=== PATIENT | male | born 1985 ===

== ENCOUNTER 2016-12-07 12:58 | Emergency (ER) | payer OTHER ==
[2016-12-07 13:11] VITALS: BMI 22.8
--- NOTE | 2016-12-07 13:51 | ED PDOC ---
Arrival/HPI - General Chief Complaint: Trauma Time Seen by Provider: 12/07/16 13:29 Historian: Patient - History of Present Illness Narrative History of Present Illness (Text): 12/07/16 14:41 31 y/o male, no pmh, nkda, last tetanus under 5 years ago, c/o laceration to the rt. 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 Pt. has no numbness or tinlging, no difficulty moving the rt. lower extremities, no numbness or tingling, no dizziness, no other medical or psychological complaints. Past Medical History - Provider Review Nursing Documentation Reviewed: Yes - Psychiatric Hx Substance Use: No - Anesthesia Hx Anesthesia: No Family/Social History - Physician Review Nursing Documentation Reviewed: Yes Family/Social History: Unknown Family HX Smoking Status: Light Smoker < 10 Cigarettes Daily Hx Alcohol Use: No Hx Substance Use: No Allergies/Home Meds Allergies/Adverse Reactions: Allergies No Known Allergies Allergy (Verified 12/07/16 13:55) Review of Systems - Physician Review All systems were reviewed & negative as marked: Yes - Review of Systems Constitutional: absent: Fatigue, Fevers Eyes: absent: Vision Changes ENT: absent: Hearing Changes Respiratory: absent: Cough Cardiovascular: absent: Chest Pain Gastrointestinal: absent: Abdominal Pain, Nausea, Vomiting Musculoskeletal: absent: Arthralgias, Back Pain Skin: Laceration. absent: Rash, Pruritis, Skin Lesions, Abscess, Ulcer, Cellulitis Neurological: absent: Headache, Dizziness, Focal Weakness, Gait Changes, Speech Changes, Facial Droop, Disequilibrium, Seizure Physical Exam - Systems Exam Head: Present: Atraumatic, Normocephalic Pupils: Present: PERRL Extroacular Muscles: Present: EOMI Conjunctiva: Present: Normal Mouth: Present: Moist Mucous Membranes Neck: Present: Normal Range of Motion Respiratory/Chest: Present: Clear to Auscultation, Good Air Exchange. No: Respiratory Distress, Accessory Muscle Use Cardiovascular: Present: Regular Rate and Rhythm, Normal S1, S2. No: Murmurs Abdomen: Present: Normal Bowel Sounds. No: Tenderness, Distention, Peritoneal Signs Back: Present: Normal Inspection Upper Extremity: Present: Normal Inspection. No: Cyanosis, Edema Lower Extremity: Present: Normal Inspection, Other (Rt. tibia/fibula: visible approx. 2cm superficial to intermediate depth laceration with skin eroded off, no visible foreign bodies, FROM without limitation, sensation intact, motor 5/5 , +DPPT pulses, capillary refill< 2 seconds, neurovascular intact. ). No: Edema Neurological: Present: GCS=15, CN II-XII Intact, Speech Normal Skin: Present: Warm, Dry, Normal Color. No: Rashes Psychiatric: Present: Alert, Oriented x 3, Normal Insight, Normal Concentration Medical Decision Making ED Course and Treatment: 12/07/16 13:59 -keflex, motrin -xray 12/07/16 14:45 -xray show no fracture/dislocation or foreign bodies. -wound irrigate with 1000cc of normal saline, clean with betadine, 1% lidocaine with 1cc for local anesthetic, 4-0 vicryl made 4 subq stiches, 4-0 nylon made 4 superficial sutures, hemoatsis obtained, bacitracin applied with gauze dressing , sensation intact, motor 5/5, neurovasuclar intact. -Pt. refused crutches or cane. -Discharge home with keflex, motrin, bacitracin oinment, keep the dressing dry and clean for 24 hours then clean with soap and water twice daily, follow up with your own pmd within 2 days, return to the ER for any new or worsening signs or symptoms. The sutures need to be removed by day 8-10. - RAD Interpretation Radiology Orders: 12/07/16 13:55 TIBIA FIBULA RIGHT [RAD] Stat - Medication Orders Current Medication Orders: Discontinued Medications Cephalexin Monohydrate (Keflex) 500 mg PO STAT STA PRN Reason: Protocol Stop: 12/07/16 13:56 Last Admin: 12/07/16 14:20 Dose: 500 MG Ibuprofen (Motrin Tab) 800 mg PO STAT STA Stop: 12/07/16 13:56 Last Admin: 12/07/16 14:19 Dose: 800 MG MAR Pain/Vitals Document 12/07/16 14:19 SE (Rec: 12/07/16 14:20 SE [id number]) Pain Reassessment Is This A Pain ReAssessment? No Sleep Is patient sleeping during reassessment? No Presence of Pain Presence of Pain Yes - PA / WOOL SAMPLER / Resident Statement MD/DO has reviewed & agrees with the documentation as recorded. Disposition/Present on Arrival - Present on Arrival Any Indicators Present on Arrival: No History of DVT/PE: No History of Uncontrolled Diabetes: No Urinary Catheter: No History of Decub. Ulcer: No History Surgical Site Infection Following: None - Disposition Have Diagnosis and Disposition been Completed?: Yes Diagnosis: Skin laceration Disposition: HOME/ ROUTINE Disposition Time: 14:47 Patient Plan: Discharge Condition: GOOD Additional Instructions: Discharge home with keflex, motrin, bacitracin oinment, keep the dressing dry and clean for 24 hours then clean with soap and water twice daily, follow up with your own pmd within 2 days, return to the ER for any new or worsening signs or symptoms. The sutures need to be removed by day 8-10. Prescriptions: Bacitracin Ointment [Bacitracin] 1 appful TOP BID #15 g Cephalexin [cephalexin] 500 mg PO QID #28 cap Ibuprofen [Motrin Tab] 800 mg PO TID PRN #21 tab PRN Reason: Other Referrals: PCP,NO [Primary Care Provider] - Follow up with primary [facility] [place] - Follow up with primary Forms: WORK NOTE
--- NOTE | 2016-12-07 14:28 | RAD ---
PROCEDURE: Radiographs of the right tibia and fibula. HISTORY: rt. tibial anterior laceration COMPARISON: None available. TECHNIQUE: Frontal and lateral views obtained. FINDINGS: BONES: No fracture or destructive lesion. Bone alignment and mineralization are normal JOINT SPACES: Unremarkable. OTHER FINDINGS: The periarticular soft tissues are normal. No radiopaque foreign body. IMPRESSION: Normal examination.
[2016-12-07 14:57] VITALS: BP 120/61; PULSE 66; RESP 19; TEMP 98.6; O2SAT 100
== END 2016-12-07 15:00 | disposition home or self-care (01) ==
LOC: ED 12:58
DX: S81.811A Laceration without foreign body, right lower leg, initial encounter (principal); W22.8XXA Striking against or struck by other objects, initial encounter; Y93.89 Activity, other specified; Y92.69 Other specified industrial and construction area as the place of occurrence of the external cause; Y99.0 Civilian activity done for income or pay